=== PATIENT | female | born 1970 | race Caucasian/White ===

== ENCOUNTER 2017-02-13 08:15 | Outpatient (CLI) | payer BC, OTHER ==
[~2017-02-13] VITALS: Ht 157.5 cm; Wt 68.0 kg
[2017-02-13] MEDS ORDERED: ONDA4TAB8 PO (09:32)
[2017-02-13] MEDS ORDERED: FENT1PAT10 TD (09:32)
[2017-02-13] MEDS ORDERED: IBUP-1773 PO (09:32)
[2017-02-13] MEDS ORDERED: SCOP1PAT TD (09:32)
[2017-02-13] MEDS ORDERED: OXYC10TA85 PO (09:32)
[2017-02-13] MEDS ORDERED: ALPR0.254 PO (09:32)
[2017-02-13] MEDS ORDERED: CALC600T12 PO (09:45)
[2017-02-13] MEDS ORDERED: MULT-301 PO (09:45)
[2017-02-13] MEDS ORDERED: OMEG100032 PO (09:45)
[2017-02-13] MEDS ORDERED: CINN500C2 PO (09:45)
== END 2017-02-13 09:54 ==
LOC: PREOP 08:15
PROVIDERS: ATTEND Orthopaedic Surgery
DX: Z01.818 Encounter for other preprocedural examination (principal); S42.021A Displaced fracture of shaft of right clavicle, initial encounter for closed fracture; X58.XXXA Exposure to other specified factors, initial encounter; Y99.8 Other external cause status

== ENCOUNTER 2017-02-14 08:52 | Day surgery (SDC) | payer BC ==
[~2017-02-14] VITALS: Ht 157.5 cm; Wt 68.0 kg
[~2017-02-14 08:52] MED LIST: ALPR0.254 PO; CALC600T12 PO; CINN500C2 PO; FENT1PAT10 TD; IBUP-1773 PO; MULT-301 PO; OMEG100032 PO; ONDA4TAB8 PO; OXYC10TA85 PO; SCOP1PAT TD
[2017-02-14] MEDS ORDERED: ceFAZolin 2 GM/NS 50 ML IV ONE (09:30)
[2017-02-14 09:35] VITALS: BP 131/79
[2017-02-14] MEDS ORDERED: FAMOTIDINE 20MG/2ML IV (PEPCID) IV ONE (09:45)
[2017-02-14] MEDS ORDERED: SCOPOLAMINE 1.5 MG (TRANSDERM-SCOP) PATCH TOP ONE (09:45)
[2017-02-14] MEDS ORDERED: ONDANSETRON 4 MG/2 ML (SDV) Z0FRAN IV ONE (09:45)
[2017-02-14] MEDS ORDERED: MIDAZOLAM 2 MG/2 ML (VERSED) VIAL IV ONE (09:45)
[2017-02-14] MEDS: LACTATED RINGERS 1,000 ML IV PRN ×2 (09:56→11:40)
[2017-02-14] MEDS ORDERED: BUPIVACAINE 0.5% 30 ML (SENSORCAINE) VIAL ONE (10:02)
[2017-02-14] MEDS ORDERED: MIDAZOLAM 2 MG/2 ML (VERSED) VIAL ONE (10:05)
[2017-02-14] MEDS ORDERED: fentaNYL INJECTION 100 MCG/2 ML AMP ONE ×3 (10:05→13:29)
[2017-02-14] MEDS ORDERED: LACTATED RINGERS 1,000 ML IV ONE (10:23)
[2017-02-14] MEDS ORDERED: proPOfol 200 MG/20 ML (DIPRIVAN) VIAL IV ONE (10:23)
[2017-02-14] MEDS ORDERED: LIDOCAINE PF 2% 5 ML (XYLOCAINE) VIAL ONE (10:23)
[2017-02-14] MEDS ORDERED: ONDANSETRON 4 MG/2 ML (SDV) Z0FRAN ONE (10:23)
[2017-02-14] MEDS ORDERED: ROCURONIUM 50 MG/5 ML (ZEMURON) VIAL IV ONE (10:23)
[2017-02-14] MEDS ORDERED: DEXAMETHASONE 10 MG/ML (DECADRON) 1 ML VIAL ONE (10:23)
[2017-02-14] MEDS ORDERED: SEVOFLURANE (ULTANE) 15 ML INHAL SOLN ONE ×10 (10:23→13:07)
--- NOTE | 2017-02-14 10:47 | Discharge Inst-Simple/Standard ---
Discharge Inst-Standard Patient Instructions/Follow Up Plan of Care/Instructions/FU: Take already prescribed pain meds as needed only Sling to surgical arm, may remove for shower and to perform pendulum exercises 3-4x per day may remove dressing on 02/17/17 and leave open to air or cover with 4x4 and tape no lifting pushing or pulling with surgical arm may move elbow wrist and hand as tolerated may take shower after dressing is removed letting water run directly over steri strips, when done pat dry and put on new dressing or leave open to air f/u in office in 2 weeks Do not remove steri strips Activity as Tolerated: No Discharge Diet: No Restrictions Return to The Hospital For: any concerns, call Dr. Cruz's office 1st TRAVIS JENSEN APRN Feb 14, 2017 10:47 am
[2017-02-14] MEDS ORDERED: NEO/POLY/BAC (NEOSPORIN) OINT 15 GM TUBE ONE (11:07)
[2017-02-14] MEDS ORDERED: HYDROmorphone (DILAUDID) 2 MG/ML VIAL ONE (13:21)
[2017-02-14] MEDS ORDERED: KETOROLAC 30 MG/ML VIAL ONE (13:29)
[2017-02-14] MEDS: HYDROmorphone (DILAUDID) 2 MG/ML VIAL IVP PRN ×3 (13:37→13:59)
[2017-02-14] MEDS ORDERED: ONDANSETRON 4 MG/2 ML (SDV) Z0FRAN IVP PRN (13:45)
[2017-02-14] MEDS ORDERED: fentaNYL INJECTION 100 MCG/2 ML AMP IVP ONE (13:45)
[2017-02-14] MEDS ORDERED: KETOROLAC 30 MG/ML VIAL IVP ONE (13:45)
[2017-02-14] MEDS ORDERED: HYDROmorphone (DILAUDID) 2 MG/ML VIAL IVP ONE (13:45)
[2017-02-14] MEDS ORDERED: fentaNYL INJECTION 100 MCG/2 ML AMP IVP PRN (13:45)
[2017-02-14] MEDS ORDERED: MEPERIDINE (DEMEROL) INJ 50 MG/ML ONE (14:00)
[2017-02-14] MEDS ORDERED: KETAMINE HCL 100 MG/ML 5 ML VIAL ONE (14:12)
[2017-02-14] MEDS ORDERED: MEPERIDINE (DEMEROL) INJ 50 MG/ML IVP PRN (14:15)
[2017-02-14 15:00] VITALS: BP 149/86
[2017-02-14 15:30] VITALS: BP 142/81
[2017-02-14 15:45] VITALS: BP 142/81
[2017-02-14 16:00] VITALS: BP 150/98
--- NOTE | 2017-02-14 19:19 | Diagnostic Imaging Report ---
Intraoperative view of the right clavicle. INDICATION: Right clavicle fracture status post internal fixation by Dr. Cruz. Fluoroscopy time provided is 17 seconds. IMPRESSION: Provided image demonstrates internal fixation of the right clavicle with plate and screws in good alignment. Dictated by: Dictated on workstation # [id number]
--- NOTE | 2017-02-15 11:31 | OPERATIVE REPORT ---
DATE OF SERVICE: 02/14/2017 PREOPERATIVE DIAGNOSIS: Displaced comminuted midshaft right clavicle fracture. POSTOPERATIVE DIAGNOSIS: Displaced comminuted midshaft right clavicle fracture. PROCEDURE: Open reduction and internal fixation displaced comminuted midshaft right clavicle fracture. SURGEON: Antony Moreno DO MESH WORKER: Tim Whitlock APRN REED OR WIND INSTRUMENT REPAIRER DUTIES: Tim Whitlock, surgical clinical reviewer was utilized throughout the entire procedure for patient positioning, wound retraction, placement of metallic fixation devices, wound closure, and patient transfer. ANESTHESIA: General. INDICATIONS AND FINDINGS: The patient is a 46-year-old female who sustained an injury when she was thrown from a horse. The patient sustained rib fractures as well as pneumothorax and a comminuted midshaft right clavicle fracture. The patient's proximal fracture fragment was displaced and angulated superiorly and was nearly through the skin superiorly. There was a segmental midshaft fracture fragment that was displaced as well. The patient was taken to surgery where an open reduction and internal fixation was performed utilizing the Arthrex clavicle plate system with the fracture reduction completed with plate screw fixation as well as cerclage sutures. The patient had an additional interfragmentary screw placed to help secure the fracture. PROCEDURE IN DETAIL: The patient was transported to the operating room where a general inhalation anesthetic was administered. The patient was placed in a beech chair position with the head positioner. The C-arm was used to verify the position of fracture. A ChloraPrep and sterile drape of the right shoulder and the right upper extremity and the chest wall in the right was completed. A longitudinal incision was made over the fracture site. The incision was deepened with electrocautery with subperiosteal dissection used to expose the fracture. A fibrous tissue in and around the fracture site was debrided. The middle segment of segmental fracture was reduced to the lateral fracture fragment and secured with K-wires. The medial most fracture fragment was then secured to the middle fragment. These were held with a clamp. A clavicle plate was then contoured to fit the superior aspect of the clavicle and the position of fracture reduction and the position of the plate was verified fluoroscopically. The plate was then secured initially with bicortical screw in the proximal fracture fragment. This was then performed in the distal fracture fragment as well laterally. Additional locking screws were placed x2 in the medial fracture fragment. Additional screw was placed through an additional fracture fragment fitting through the plate for a total of 4 screws placed through the segmental piece in the mid aspect, 3 screws through the medial fragment and 2 screws placed in the lateral fragment. Additional anterior to posterior 2.7 mm interfragmentary screw was completed. The pins removed. The patient demonstrated satisfactory anatomic position alignment of the fracture reduction in the area of comminution in the mid aspect of the plate 0 Vicryl suture was placed in a circumferential suture pattern to help secure the fragments to the plate. The wound was irrigated extensively with normal saline solution. The fascia overlying the plate was then secured with interrupted 0 Vicryl [id number] sutures as well as a running suture. The subcutaneous tissues were closed with 0 and 2-0 Vicryl sutures. The skin itself was closed with subcuticular running suture reinforced with Mastisol and Steri-Strips. An Adaptic, Neosporin, bulky dressing was placed about the right shoulder. The arm was placed in the sling. The patient was awakened and transported to postop recovery with anesthesia personnel present in satisfactory condition. Job ID: [id number] DocumentID: [id number] Dictated Date: 02/14/2017 13:59:43 Grain Buyer Date: 02/14/2017 23:02:35 Dictated By: ANTONY MORENO DO
== END 2017-02-14 16:00 | disposition home or self-care (01) ==
LOC: SDC 08:52
PROVIDERS: ATTEND Orthopaedic Surgery
DX: S42.021A Displaced fracture of shaft of right clavicle, initial encounter for closed fracture (principal); V80.010A Animal-rider injured by fall from or being thrown from horse in noncollision accident, initial encounter; Y93.52 Activity, horseback riding
CPT/HCPCS: 87081